=== PATIENT | female | born 1985 | race Caucasian/White ===

== ENCOUNTER 2017-09-18 16:31 | Emergency (ER) | payer OTHER ==
[~2017-09-18] VITALS: Ht 162.6 cm; Wt 79.8 kg
[2017-09-18] MEDS ORDERED: NORCO 5/3251 TABLET PO (17:49)
[2017-09-18 18:55] VITALS: BP 135/103
== END 2017-09-18 18:56 | disposition home or self-care (01) ==
LOC: EME 16:31
PROC: 2W39X1Z Immobilization of Left Upper Extremity using Splint (ICD-10-PCS; principal; 2017-09-18)
DX: S52.132A Displaced fracture of neck of left radius, initial encounter for closed fracture (principal); W19.XXXA Unspecified fall, initial encounter
CPT/HCPCS: 73080; 99281; 99284